=== PATIENT | male | born 1950 | race Caucasian/White ===

== ENCOUNTER 2017-03-15 08:33 | Outpatient (CLI) | payer MEDICARE, OTHER ==
--- NOTE | 2017-03-15 11:22 | RAD ---
RIGHT SHOULDER ARTHROGRAM: History: Evaluate for rotator cuff tear. Comparison: MRI 07-29-14 FINDINGS: Patient was brought to the fluoroscopy suite where all questions were answered. The right shoulder was prepped and draped in normal sterile fashion after informed consent was obtain ed and time-out was performed. 3 ml of Lidocaine was instilled into the deep soft tissues. Subsequently, the right shoulder joint wa s accessed with a 20 gauge spinal needle. Instillation of 10 ml of contrast solution was instilled in to the shoulder which was pre-mixed by the pharmacist. IMPRESSION: Technically successful right shoulder arthrogram for MRI. Patient tolerated the procedure well. Fluoro time: 0.4 minutes, dose 2.391 mGy*cm^2. POS: [facility]
--- NOTE | 2017-03-15 12:00 | MRI ---
MRI RIGHT SHOULDER WITH INTRAARTICULAR CONTRAST: HISTORY: M25.501. Rotator cuff tear. COMPARISON: MRI 05/01/14. FINDINGS: Biceps Tendon: There is normal appearance of the extraarticular biceps tendon. The intraarticular t endon also has a normal appearance. Labrum: There is a tear of the anterior inferior labrum which has thickened with small osteophyte fo rmation. There is a tear of the posterior inferior labrum with some extravasation of contrast involv ing the periosteum. The underlying glenoid is somewhat flattened with a small subchondral cyst forma tion. The tear of the posterior labrum extends all the way from 6 o'clock to nearly 12 o'clock up to the sublabral foramen. Rotator Cuff: Mild tendinosis of the scapularis. Low-grade undersurface fraying of the anterior-mos t fibers supraspinatus tendon just medial to the footplate. There is no contrast within the subacrom ial/subdeltoid bursa. Bones: There is a type I acromion. Moderate degenerative disease of the acromioclavicular joint. Muscle: Muscle bulk is normal. IMPRESSION: 1. Tear throughout the posterior labrum from 6 o'clock to 12 o'clock. There is extravasation of con trast through the posterior inferior labrum through the periosteum. Tear extends to the superior lab rum. 2. Rotator cuff has some low-grade undersurface fraying anterior fibers of the supraspinatus; otherw ise, intact. 3. Thickened and likely scarred anterior inferior labrum with small glenoid osteophyte. 4. Remodeling of the posterior inferior labrum suggests instability with subchondral cyst formation and osteophyte formation. POS: [facility]
== END 2017-03-15 08:34 | disposition home or self-care (01) ==
LOC: RAD 08:33
PROVIDERS: ATTEND Orthopaedic Surgery
DX: M25.511 Pain in right shoulder (principal); S43.401A Unspecified sprain of right shoulder joint, initial encounter; M25.711 Osteophyte, right shoulder
CPT/HCPCS: 23350

== ENCOUNTER 2017-06-21 14:41 | Outpatient (CLI) | payer MEDICARE, OTHER ==
[2017-06-21 15:25] LABS: #Basophils 0.1 thou/uL (0.0-0.2); #Eosinphils 0.2 thou/uL (0.0-0.7); #Lymphocytes 1.7 thou/uL (1.20-3.40); #Monocytes 0.6 thou/uL (0.11-0.59); #Neutrophils 3.8 thou/uL (1.40-6.50); %Eosinophils 3.1 % (0.0-10.0); %Lymphocytes 26.9 % (21.0-51.0); Hemoglobin 16.1 g/dL (14.0-18.0); Mean Corpuscular HGB CONC 33.8 g/dL (32.0-36.0); Mean Corpuscular Hemoglobin 32.3 pg (27.0-31.0); Mean Corpuscular Volume 95.5 fl (80.0-94.0); Mean Platelet Volume 7.7 fL (7.4-10.4); Platelet Count 240 thou/uL (130-400); Red Blood Cell (RBC) Count 4.98 mill/uL (4.70-6.10); White Blood Cell (WBC) Count 6.4 thou/uL (4.8-10.8)
[2017-06-21 15:48] LABS: Anion Gap 14 mmol/L (10-20); BUN (Urea Nitrogen) 17 mg/dL (8.4-25.7); Calc. Creatinine Clearance 0 mL/min (70-130); Calcium 9.1 mg/dL (7.8-10.44); Carbon Dioxide 24 mmol/L (23-31); Chloride 104 mmol/L (98-107); Estimated GFR-MDRD 69; Glucose 89 mg/dL (80-115); Potassium 4.5 mmol/L (3.5-5.1); Sodium 137 mmol/L (136-145)
== END 2017-06-21 14:42 | disposition home or self-care (01) ==
LOC: LABBT 14:41
PROVIDERS: ATTEND Orthopaedic Surgery
DX: Z01.818 Encounter for other preprocedural examination (principal); M75.91 Shoulder lesion, unspecified, right shoulder
CPT/HCPCS: 80048; 85025; 93005; 93010

== ENCOUNTER 2017-06-26 07:57 | Day surgery (SDC) | payer MEDICARE, OTHER ==
[2017-06-21 15:25] VITALS: BMI 25.7
[2017-06-26] MEDS ORDERED: Clindamycin/D5W 600 mg/50 ml Premix Bag ONE (08:43)
[2017-06-26] MEDS ORDERED: Fentanyl 100 MCG/2 ML VIAL ONE ×2 (09:11→11:02)
[2017-06-26] MEDS ORDERED: Midazolam HCl 2 mg/2 ml Vial ONE (09:11)
[2017-06-26] MEDS ORDERED: Ondansetron PF 4 MG/2 ML Vial IVP PRN (10:12)
[2017-06-26] MEDS ORDERED: traMADol HCl 50 MG TAB PO PRN ×2 (10:12)
[2017-06-26] MEDS ORDERED: Ketorolac Tromethamine 30 MG/ML VIAL IVP PRN (10:12)
[2017-06-26] MEDS ORDERED: Ropivacaine 0.2% 550 ML 550 ML NERVE BLCK SCH (10:12)
[2017-06-26] MEDS ORDERED: Promethazine HCl 25 MG/ML VIAL IM PRN (10:12)
[2017-06-26] MEDS ORDERED: Zolpidem Tartrate 5 MG TAB PO PRN (10:12)
[2017-06-26] MEDS ORDERED: HYDROcodone/Acetaminophen 10/325 mg Tablet PO PRN ×2 (10:12)
[2017-06-26] MEDS ORDERED: Fentanyl 100 MCG/2 ML VIAL IV PRN (10:13)
[2017-06-26] MEDS ORDERED: Ondansetron PF 4 MG/2 ML Vial ONE ×2 (11:02→16:24)
--- NOTE | 2017-06-26 12:52 | OP ---
DATE OF PROCEDURE: 06/26/2017 PROCEDURE: Right shoulder arthroscopic decompression, labrum debridement and biceps tenodesis. SURGEON: Jori Carter M.D. TEACHER OF THE SIGHT IMPAIRED: Kirt Stern PA-C. BLOOD LOSS: Minimal. SPECIMEN: None. DRAINS: None. COMPLICATIONS: None. PROCEDURE IN DETAIL: The patient was taken to the operating room where general anesthesia induced. The patient was placed in left lateral decubitus position. Right arm was prepped and draped in the u sual sterile fashion, placed in traction 15 pounds. Scope was placed in the glenohumeral joint, ther e was no significant arthritis. He did have extensive tearing of his labrum. I tagged the biceps te ndon and detached the biceps tendon. I then debrided the labrum until it was stable. The shoulder w as irrigated. Attention was placed in subacromial bursa. I performed a bursectomy, anterior and inf erior acromioplasty and a CA ligament resection. I exposed the biceps tendon. The biceps tendon was delivered through the lateral portal. I used a Broadway type suture to tag the terminal 25 mm of the biceps tendon. This measured about 7 mm. I used a 7 mm Arthrex Bio-Tenodesis screw. I drilled a 7 mm hole in the proximal humerus. The tendon was delivered into the hole. The screw was inserted wit h excellent press fit. Sutures were tied over the screw. Bursa was drained. Portals closed with ny alyx suture. Sterile dressings applied.
[2017-06-26] MEDS ORDERED: Bupivacaine 0.25% HCL 30 ML VIAL ONE (16:01)
[2017-06-26] MEDS ORDERED: Ropivacaine 0.5% HCl/PF (150 MG/30 ML VIAL) ONE (16:01)
[2017-06-26] MEDS ORDERED: Lidocaine 1% PF 5 ML VIAL ONE (16:24)
[2017-06-26] MEDS ORDERED: Ketorolac Tromethamine 30 MG/ML VIAL ONE (16:24)
[2017-06-26] MEDS ORDERED: PROPOFOL 200 MG/20 ML VIAL ONE (16:24)
== END 2017-06-26 15:10 | disposition home or self-care (01) ==
LOC: SDC 07:57
PROVIDERS: ATTEND Orthopaedic Surgery
PROC: 0RBJ4ZZ Excision of Right Shoulder Joint, Percutaneous Endoscopic Approach (ICD-10-PCS; principal; 2017-06-26)
PROC: 0LS14ZZ Reposition Right Shoulder Tendon, Percutaneous Endoscopic Approach (ICD-10-PCS; 2017-06-26)
DX: S43.431A Superior glenoid labrum lesion of right shoulder, initial encounter (principal); Z88.0 Allergy status to penicillin; Z98.890 Other specified postprocedural states
CPT/HCPCS: 29823; 29828; 97139; A4306; G8984; G8985; G8986; C1713; J1885; J2001; J2250; J2405; J2704; J2795; J3010; J3490; S0020

== ENCOUNTER 2018-08-23 12:54 | Observation (INO) | payer MEDICARE, OTHER ==
[2018-08-23 13:44] LABS: #Basophils 0.1 thou/uL (0.0-0.2); #Eosinphils 0.1 thou/uL (0.0-0.7); #Lymphocytes 1.8 thou/uL (1.20-3.40); #Monocytes 0.5 thou/uL (0.11-0.59); #Neutrophils 4.2 thou/uL (1.40-6.50); %Basophils 0.8 % (0.0-1.0); %Eosinophils 1.8 % (0.0-10.0); %Lymphocytes 26.6 % (21.0-51.0); %Monocytes 7.5 % (0.0-10.0); %Neutrophils 63.4 % (42.0-75.0); Hemoglobin 11.3 g/dL (14.0-18.0); Mean Corpuscular HGB CONC 34.3 g/dL (32.0-36.0); Mean Corpuscular Volume 93.3 fL (78.0-98.0); Mean Platelet Volume 7.5 fL (7.4-10.4); Platelet Count 230 thou/uL (130-400); RBC Distribution Width 12.2 % (11.5-14.5); Red Blood Cell (RBC) Count 3.52 mill/uL (4.70-6.10); White Blood Cell (WBC) Count 6.6 thou/uL (4.8-10.8)
[2018-08-23 13:50] LABS: PTT 26.8 SEC (22.9-36.1); Prothrombin Time 13.6 SEC (12.0-14.7)
[2018-08-23 14:08] LABS: ALT (SGPT) 21 U/L (8-55); AST (SGOT) 22 U/L (5-34); Albumin 4.1 g/dL (3.4-4.8); Alkaline Phosphatase 61 U/L (40-150); Anion Gap 11 mmol/L (10-20); BUN (Urea Nitrogen) 21 mg/dL (8.4-25.7); Bilirubin, Total 0.9 mg/dL (0.2-1.2); CK (CPK) 110 U/L (30-200); Calc. Creatinine Clearance 0 mL/min (70-130); Calcium 8.8 mg/dL (7.8-10.44); Carbon Dioxide 25 mmol/L (23-31); Chloride 107 mmol/L (98-107); Estimated GFR-MDRD 82; Globulin 2.3 g/dL (2.4-3.5); Glucose 94 mg/dL (80-115); Lipase 84 U/L (8-78); Potassium 4.5 mmol/L (3.5-5.1); Protein, Total 6.4 g/dL (5.8-8.1); Sodium 138 mmol/L (136-145)
[2018-08-23 14:58] LABS: Bilirubin Negative (Negative); Blood, Urine Negative (Negative); Clarity TURBID (Clear); Glucose, Urine (Dipstick) Negative (Negative); Leukocyte Negative (Negative); Nitrite Negative (Negative); Protein, Urine (Dipstick) Negative (Neg-Trace); Urobilinogen 0.2 mg/dL (0.2-1.0)
[2018-08-23] MEDS ORDERED: Dextrose 5 %-0.45 % NaCl 1,000 ML IV SCH (16:30)
--- NOTE | 2018-08-23 16:59 | CON ---
DATE OF CONSULTATION: 08/23/2018 CHIEF COMPLAINT: Blood in the stool, vomited blood. HISTORY OF PRESENT ILLNESS: Mr. Epstein is a 68-year-old man, who woke up 4 days ago with nausea and epigastric vague discomfort. This went on through the day and then the next day, he developed worsening nausea and worsening aching pain in the periumbilical to epigastric region. The pain did not radiate. He had no chest pain or shortness of breath with that. On Sunday evening, he vomited black material. He has had no further vomiting since then. However, the pain and nausea persisted. He had a bowel movement after that, which was black. He had taken a bottle of Pepto-Bismol. After that, he took some milk of magnesia. Yesterday, he had a few black stools and again today, he had 2 black stools this morning. He has had some weakness. He has been taking ibuprofen up to 4 tablets at a time 4 times a day intermittently over the last 3 months for shoulder pain and for tooth pain. He was found to have anemia with a hemoglobin of 11.3 in the emergency room prior to receiving any fluids. His hemoglobin was closer to 13 as an outpatient reportedly a month before. He states that he had a colonoscopy by Dr. Granados around 5 years ago, which was normal and he was told to repeat in 10 years. PAST MEDICAL HISTORY: Otherwise, negative. PAST SURGICAL HISTORY: He has had surgery on both shoulders. FAMILY HISTORY: Negative for GI malignancy. SOCIAL HISTORY: He drinks half a bottle of wine on Sunday evenings. Otherwise, no alcohol. No drugs. He quit smoking in the early 1970s. ALLERGIES: PENICILLIN. MEDICATIONS: At home, he takes multiple vitamin daily. He has been taking ibuprofen regularly and sometimes Tylenol as well. He had taken the Pepto-Bismol and neither Maalox or milk of magnesia recently as well. REVIEW OF SYSTEMS: Negative x10 systems reviewed except as stated in the history of present illness. PHYSICAL EXAMINATION: VITAL SIGNS: Pulse 67, blood pressure is in the one teens over 60s, and temperature 98.1. GENERAL: He is in no acute distress. Alert and oriented x3. HEENT: Eyes have no scleral icterus. Oropharynx is clear without lesions. No cervical or supraclavicular lymphadenopathy. LUNGS: Clear to auscultation bilaterally. HEART: Regular rate and rhythm without murmur. ABDOMEN: Soft. Minimal tenderness in the epigastric region without guarding. Bowel sounds are present. EXTREMITIES: No lower extremity edema. NEUROLOGIC: Cranial nerves are grossly intact. RECTAL: Performed and showed a scant amount of black stool. LABORATORY DATA: White blood cell count 6.6, hemoglobin 11.3, and platelets 230. INR 1.0. Creatinine 0.91. Bilirubin 0.9, AST 22, ALT 21, alkaline phosphatase 61, albumin 4.1, and lipase 84. IMPRESSION: 1. Suspected gastrointestinal bleed with melena and possible coffee-grounds emesis. He has been taking high doses of ibuprofen. Rule out peptic ulcer. 2. Anemia of acute blood loss. He has mild anemia with a hemoglobin of 11.3. However, he reportedly had a hemoglobin over 13 a month or two ago. RECOMMENDATIONS: 1. Proton pump inhibitor. 2. We will plan upper endoscopy for tomorrow morning. He did have strawberries at noon today and he is hemodynamically stable and does not appear to be bleeding significantly at this time. Job ID: [id number]
[2018-08-23] MEDS ORDERED: Acetaminophen 500 MG TAB PO PRN (17:18)
--- NOTE | 2018-08-23 17:50 | HP ---
HISTORY OF PRESENT ILLNESS: A 68-year-old gentleman, who was seen in the ER with the black tarry stools. He has been taking 800 mg of ibuprofen 5 times a day for about 5 days or so for shoulder pain. Apparently, he might have vomited some blood, though he did eat some strawberries earlier, it is unclear, but he has had black stools now for several days. He also complained of abdominal pain in the ER. He is no longer nauseated. PAST MEDICAL HISTORY: Otherwise unremarkable for major medical problems. No history of diabetes or hypertension. PAST SURGICAL HISTORY: Both shoulder surgeries otherwise no other surgical procedures. SOCIAL HISTORY: Former smoker, quit smoking in the 70s. Minimal alcohol intake. Otherwise unremarkable. ALLERGIES: PENICILLIN. REVIEW OF SYSTEMS: Otherwise 10-point negative. PHYSICAL EXAMINATION: GENERAL: He is in no acute distress. VITAL SIGNS: His saturations are 98, pulse 80, blood pressure __120\74. CHEST: Decreased breath sounds. No wheezing. CARDIAC: Normal S1 and S2. No gallops. ABDOMEN: No masses. LABORATORY DATA: Unremarkable. Liver function normal. Albumin is 2.3. Lipase is slightly elevated at 84. His liver profile was normal. His white count is 6, H and H 11 and 32. IMPRESSION: 1. Black tarry stools, gastrointestinal bleed probably secondary to nonsteroidals. 2. Arthritis. PLAN: He is scheduled for endoscopy in the morning. He is started on proton pump inhibitors. Pain relief with Tylenol, n.p.o. after midnight. Job ID: [id number] [facility]
[2018-08-23 17:53] VITALS: BMI 25.0
[2018-08-23] MEDS: Sodium Chloride 0.9% 1,000 ML IV SCH (17:58)
[2018-08-23] MEDS: Pantoprazole 40 MG VIAL IVP SCH (20:20)
[2018-08-24 04:53] LABS: #Basophils 0.1 thou/uL (0.0-0.2); #Eosinphils 0.2 thou/uL (0.0-0.7); #Monocytes 0.5 thou/uL (0.11-0.59); #Neutrophils 3.6 thou/uL (1.40-6.50); %Basophils 1.1 % (0.0-1.0); %Eosinophils 2.4 % (0.0-10.0); %Lymphocytes 31.8 % (21.0-51.0); %Monocytes 8.1 % (0.0-10.0); %Neutrophils 56.5 % (42.0-75.0); Hemoglobin 9.5 g/dL (14.0-18.0); Mean Corpuscular HGB CONC 34.1 g/dL (32.0-36.0); Mean Corpuscular Hemoglobin 32.1 pg (27.0-31.0); Mean Platelet Volume 6.9 fL (7.4-10.4); Platelet Count 186 thou/uL (130-400); RBC Distribution Width 12.2 % (11.5-14.5); Red Blood Cell (RBC) Count 2.97 mill/uL (4.70-6.10); White Blood Cell (WBC) Count 6.3 thou/uL (4.8-10.8)
[2018-08-24] MEDS: Sodium Chloride 0.9% 1,000 ML IV SCH ×2 (06:04→14:15)
[2018-08-24] MEDS ORDERED: Promethazine HCl 25 MG/ML VIAL IM PRN (08:51)
[2018-08-24] MEDS ORDERED: Ondansetron HCl/PF 4 MG/2 ML Vial IVP PRN (08:51)
[2018-08-24] MEDS ORDERED: Promethazine HCl 25 MG/ML VIAL SLOW IVP PRN (08:51)
[2018-08-24] MEDS ORDERED: Prevnar 13-Val Conj/PF 0.5 ML SYRINGE IM ONE (09:00)
[2018-08-24] MEDS ORDERED: Ondansetron PF 4 MG/2 ML Vial IVP PRN (09:17)
[2018-08-24] MEDS: Pantoprazole 40 MG VIAL IVP SCH ×2 (09:22→20:34)
--- NOTE | 2018-08-24 10:08 | OP ---
DATE OF PROCEDURE: 08/24/2018 PROCEDURE PERFORMED: Esophagogastroduodenoscopy with control of hemorrhage and biopsy. PREOPERATIVE DIAGNOSES: Gastrointestinal bleed and anemia of acute blood loss. DESCRIPTION OF PROCEDURE: Informed consent was obtained from the patient. He was sedated with total intravenous anesthesia. The bite block was placed and the endoscope was advanced easily to the second portion of the duodenum and retroflexion was performed in the stomach. The esophagus was normal. There was a small 1 cm hiatal hernia. The stomach had nonerosive gastritis in the proximal body. This was just patchy mild erythema. Biopsies were obtained from the antrum to rule out Helicobacter pylori. Retroflexed views in the stomach were normal. The pylorus was normal. There was a 1.3 cm cratered ulcer at the junction between the first and second portions of the duodenum on the lateral wall of the first portion of the duodenum. There was a small vessel with a slight ooze of active red bleeding. This vessel was cauterized with a 10-Turkish Gold probe. There was also a flat black spot in the base that looked like it might have been a more significant bleeder previously. The second portion of the duodenum was normal. IMPRESSION: 1. Duodenal ulcer with a small vessel in the base of the ulcer with mild active bleeding. This was cauterized with a 10-Turkish Gold probe. The ulcer is likely secondary to NSAIDs. 2. Nonerosive gastritis, biopsied to rule out Helicobacter pylori. 3. Small 1 cm hiatal hernia. RECOMMENDATIONS: 1. Continue proton pump inhibitor IV twice daily. 2. Change to oral pantoprazole tomorrow. 3. Full liquid diet today and then transition to a low-fiber diet tomorrow. 4. Await histopathology. 5. Avoid NSAIDs. 6. Okay to take Tylenol for pain. 7. Ferrous sulfate 325 mg twice daily for a month or 2. If necessary, can take MiraLAX 17 g daily if the iron constipates. 8. Anticipate discharge home tomorrow. 9. Follow up with Dr. Granados in [facility] or her PA in 4 to 6 weeks. Job ID: [id number]
[2018-08-24] MEDS ORDERED: PROPOFOL 200 MG/20 ML VIAL ONE (11:32)
--- NOTE | 2018-08-24 11:45 | PRG ---
DATE OF SERVICE: 08/24/2018 SUBJECTIVE: This morning, the patient is awake, alert, and responsive. Underwent endoscopy. OBJECTIVE: VITAL SIGNS: Blood pressure 101/51, pulse 56, temperature 98, and sats 90%. GENERAL: He denies any pain or discomfort. CHEST: Decreased breath sounds. No wheezing. CARDIAC: Normal S1 and S2. No gallops. ABDOMEN: No masses. LABORATORY DATA: His lipase is back to normal. His H and H have dropped to 9.5 and 27. His endoscopy revealed bleeding, duodenal ulcer, underwent appropriate intervention with small vessel. IMPRESSION: Bleeding, peptic ulcer, secondary to possibly NSAIDs and SAIDs. Continue Protonix. H and H in the morning. Stable, he could be discharged home tomorrow as per GI. Job ID: [id number]
[2018-08-25] MEDS: Sodium Chloride 0.9% 1,000 ML IV SCH (02:22)
[2018-08-25 05:52] LABS: #Eosinphils 0.2 thou/uL (0.0-0.7); #Lymphocytes 1.8 thou/uL (1.20-3.40); #Monocytes 0.5 thou/uL (0.11-0.59); %Basophils 0.8 % (0.0-1.0); %Eosinophils 4.2 % (0.0-10.0); %Monocytes 10.6 % (0.0-10.0); %Neutrophils 44.4 % (42.0-75.0); Mean Corpuscular HGB CONC 34.5 g/dL (32.0-36.0); Mean Corpuscular Hemoglobin 32.8 pg (27.0-31.0); Mean Corpuscular Volume 94.9 fL (78.0-98.0); Mean Platelet Volume 8.5 fL (7.4-10.4); Platelet Count 157 thou/uL (130-400); RBC Distribution Width 12.3 % (11.5-14.5); Red Blood Cell (RBC) Count 2.75 mill/uL (4.70-6.10); White Blood Cell (WBC) Count 4.6 thou/uL (4.8-10.8)
[2018-08-25 08:12] VITALS: TEMP 98
[2018-08-25] MEDS: Pantoprazole 40 MG VIAL IVP SCH (09:03)
--- NOTE | 2018-08-25 09:13 | PRG ---
DATE OF SERVICE: 08/25/2018 SUBJECTIVE: This morning, awake, alert, and responsive. No further BM. No longer short of breath, dizzy, or lightheaded. OBJECTIVE: VITAL SIGNS: Temperature 98, pulse 60, respiratory rate 14, saturations 98%, blood pressure 96/55. CHEST: No wheezing or crackles. CARDIAC: Normal S1 and S2. No gallops. ABDOMEN: No masses. LABORATORY DATA: H and H are stable at 9 and 26. His admission hematocrit was 32. IMPRESSION: Upper gastrointestinal bleed secondary to nonsteroidals, peptic ulcer disease. PLAN: Discontinue IV fluids, regular diet. Could be discharged home if okay with GI. Follow up with primary care physician. Job ID: [id number]
--- NOTE | 2018-08-25 11:05 | PRG ---
DATE OF SERVICE: 08/25/2018 SUBJECTIVE: Mr. Epstein has no abdominal pain. He is tolerating, has solid breakfast this morning. He has had no bowel movement yet today. OBJECTIVE: VITAL SIGNS: Temperature 98.0, pulse 60, blood pressure 96/55. His blood pressure did run as low as 87/50 last night, but he was asymptomatic with it. LUNGS: Clear to auscultation bilaterally. HEART: Regular rate and rhythm without murmur. ABDOMEN: Soft, nontender, nondistended. Bowel sounds are present. EXTREMITIES: No lower extremity edema. LABORATORY DATA: White blood cell count 4.6, hemoglobin 9.0, platelets 157. INR 1.0. IMPRESSION: 1. Gastrointestinal bleed secondary to duodenal ulcer. Gastric biopsies were obtained to rule out Helicobacter pylori and are pending. The ulcer was most likely secondary to NSAIDs. 2. Anemia of acute blood loss. He has dropped his hemoglobin down to 9.0. His blood pressure did run a little bit low last night, but he is asymptomatic with that. He is up, ambulating, and otherwise doing well. He is tolerating a regular diet. He should be ready to discharge home today. RECOMMENDATIONS: 1. Pantoprazole 40 mg twice daily for 1 week and then once daily for the next month. 2. Avoid NSAIDs. 3. Await histopathology. 4. Follow up with Dr. Granados or her PA in 2 weeks to recheck the hemoglobin and follow up on biopsy results. 5. Ferrous sulfate 325 mg twice daily. If this causes constipation, he can take MiraLAX 17 g daily. 6. Discharge home today on a regular diet. Job ID: [id number]
[2018-08-25 12:37] VITALS: BP 94/51
--- NOTE | 2018-08-26 08:04 | DIS ---
DATE OF ADMISSION: 08/23/2018 DATE OF DISCHARGE: 08/25/2018 SUBJECTIVE: This morning, he is doing well. He is being discharged home. OBJECTIVE: VITAL SIGNS: Blood pressure 96/55, sats 90% on room air, respirations 14, pulse 60, temperature 98. No further GI bleed. LABORATORY DATA: H and H are stable at 9 and 26. Platelet count is normal. He has been discharged home on Protonix 40 per day as per GI to follow up by his primary care physician and GI. BRIEF HOSPITAL COURSE: Mr. Epstein presented to the hospital with vomiting blood and black tarry stools. Endoscopy revealed a duodenal ulcer which was bleeding, which was cauterized. His H and H did drop a little bit, did not require transfusion. He can be discharged home in stable condition to be followed by his primary care physician. FINAL DIAGNOSIS: Upper gastrointestinal bleed secondary to nonsteroidals. HOME MEDICATIONS: 1. Protonix 40 b.i.d. 2. Ferrous sulfate 325 b.i.d. as per GI. Job ID: [id number]
== END 2018-08-25 12:40 | disposition home or self-care (01) ==
LOC: ERS 12:54 → 2SW 15:55
PROVIDERS: ADMIT Internal Medicine Nephrology; ATTEND Internal Medicine Nephrology
PROC: 0DB78ZX Excision of Stomach, Pylorus, Via Natural or Artificial Opening Endoscopic, Diagnostic (ICD-10-PCS; principal; 2018-08-23)
PROC: 0W3P8ZZ Control Bleeding in Gastrointestinal Tract, Via Natural or Artificial Opening Endoscopic (ICD-10-PCS; 2018-08-23)
DX: K26.4 Chronic or unspecified duodenal ulcer with hemorrhage (principal); K29.51 Unspecified chronic gastritis with bleeding; B96.81 Helicobacter pylori [H. pylori] as the cause of diseases classified elsewhere; T39.395A Adverse effect of other nonsteroidal anti-inflammatory drugs [NSAID], initial encounter; D62 Acute posthemorrhagic anemia; K44.9 Diaphragmatic hernia without obstruction or gangrene; M19.90 Unspecified osteoarthritis, unspecified site; Z87.891 Personal history of nicotine dependence; Z88.0 Allergy status to penicillin
CPT/HCPCS: 43239; 43255; 80053; 81003; 82150; 82274; 82550; 83690 ×2; 84484; 85025 ×3; 85610; 85730; 86850; 86900; 86901; 88305; 88312; 93005; 96361 ×3; 96374; 96376 ×2; 99285; G0378 ×2; 36415; C9113; J2704

== ENCOUNTER 2023-08-10 08:15 | Outpatient (CLI) | payer MEDICARE | END 2023-08-10 08:16 | disposition home or self-care (01) | LOC: BICMAMMO 08:15 | PROVIDERS: ATTEND Internal Medicine Critical Care Medicine | DX: Z13.820 Encounter for screening for osteoporosis (principal); S32.020A Wedge compression fracture of second lumbar vertebra, initial encounter for closed fracture; M81.0 Age-related osteoporosis without current pathological fracture | CPT/HCPCS: 77080 ==